=== PATIENT | male | born 1970 | race Caucasian/White ===

== ENCOUNTER 2018-12-06 14:53 | Emergency (ER) | payer BC ==
[2018-12-06 15:08] VITALS: BP 132/75
[2018-12-06] MEDS ORDERED: HYDROmorphone 1 MG/ML Syringe IM ONE (15:27)
--- NOTE | 2018-12-06 15:39 | EDM.PDOC ---
<Tahir Sofia - Last Filed: 12/06/18 15:48> ED HPI GENERAL MEDICAL PROBLEM - General Chief Complaint: Upper Extremity Injury/Pain Stated Complaint: FELL ON ARM/ IN SEVERE PAIN Time Seen by Provider: 12/06/18 15:08 Source of Information: Reports: Patient History Limitations: Reports: No Limitations - History of Present Illness INITIAL COMMENTS - FREE TEXT/NARRATIVE: Angel Luis Denise is a 48 year old male who presents to the ED for a possible fracture to his right arm. He states when he was at work this morning, he walking backwards when and tripped over a [employer] frame and when he fell he turned to his side and landed directly on his left elbow. This was at 7 a.m. this morning. He also states that right after the injury happened he did feel immediate pain but was able to move his arm freely. As the day progressed his pain started to increase and he started to lose ROM due to the increased swelling and pain. He states that the pain is a sharp pain with any movement that radiated down to his fingers. He has increased pain with flexion, extension , supination, and pronation. He hasn't taken anything for pain but he did come in with ice applied to the area. He is on Coumadin for an artificial Aortic valve replacement. He does state that the swelling hasn't progressed within the last 3 hours. He does not have any history of fractures or injuries to his arm or shoulder. Left Elbow Pain Score (Numeric/FACES): 2 - Related Data Allergies Allergy/AdvReac Type Severity Reaction Status Date / Time No Known Allergies Allergy Verified 12/06/18 15:01 Home Meds: Home Meds Aspirin 81 mg PO DAILY 08/22/15 [History] DULoxetine [Cymbalta] 20 mg PO DAILY 08/22/15 [History] Lisinopril 20 mg PO DAILY 08/22/15 [History] Metoprolol Tartrate 50 mg PO DAILY 08/22/15 [History] Warfarin Sodium [Coumadin] 10 mg PO DAILY 08/22/15 [History] amLODIPine [Norvasc] 10 mg PO BID 08/22/15 [History] Past Medical History Cardiovascular History: Reports: CAD, High Cholesterol, Hypertension - Past Surgical History Cardiovascular Surgical History: Reports: Valve Replacement Musculoskeletal Surgical History: Reports: Arthroscopic Knee Social & Family History - Tobacco Use Smoking Status *Q: Current Every Day Smoker Years of Tobacco use: 30 Packs/Tins Daily: 1 - Caffeine Use Caffeine Use: Reports: Coffee - Recreational Drug Use Recreational Drug Use: No Review of Systems - Review of Systems Review Of Systems: See Below Constitutional: Reports: No Symptoms Respiratory: Reports: No Symptoms Cardiovascular: Reports: No Symptoms GI/Abdominal: Reports: No Symptoms Musculoskeletal: Reports: Arm Pain, Joint Swelling Skin: Reports: No Symptoms Neurological: Reports: No Symptoms ED EXAM, GENERAL - Physical Exam Exam Limited By: No Limitations General Appearance: Alert, WD/WN, No Apparent Distress Eye Exam: Bilateral Eye: Normal Inspection Respiratory/Chest: No Respiratory Distress, Lungs Clear, Normal Breath Sounds, No Accessory Muscle Use, Chest Non-Tender Cardiovascular: Normal Peripheral Pulses, Regular Rate, Rhythm, No Edema, No Gallop, No JVD, No Murmur, No Rub Peripheral Pulses: 2+: Brachial (L), Brachial (R), Radial (L), Radial (R) Extremities: Normal Capillary Refill, Joint Swelling (Left elbow), Arm Pain, Limited Range of Motion (Due to pain) Neurological: Alert, Oriented, Normal Gait, No Motor/Sensory Deficits Skin Exam: Warm, Dry, Intact, Normal Color, No Rash Course - Vital Signs Last Recorded V/S: Last Vital Signs Temp 98.1 F 12/06/18 15:03 Pulse 61 12/06/18 15:03 Resp 12 12/06/18 15:03 BP 132/75 12/06/18 15:03 Pulse Ox 98 12/06/18 15:03 - Orders/Labs/Meds Orders: Active Orders 24 hr Category Date Time Status Forearm 2V Lt [CR] Stat Exams 12/06/18 15:24 Ordered DME for Discharge [COMM] Routine Oth 12/06/18 16:00 Ordered Meds: Medications Discontinued Medications Generic Name Dose Route Start Last Admin Trade Name Freq PRN Reason Stop Dose Admin Hydromorphone HCl 1 mg 12/06/18 15:27 12/06/18 15:50 Dilaudid IM 12/06/18 15:28 1 mg ONETIME ONE Administration Departure - Departure Disposition: Home, Self-Care 01 Clinical Impression: Left elbow pain - Discharge Information Instructions: How to Use a Sling, [id number], Joint Pain, [id number] Referrals: Lety Hooker PA-C [Primary Care Provider] - Forms: ED Department Discharge, ED Return to Work/School Form Additional Instructions: You have been evaluated in the ED for your left elbow pain. Your x-ray demonstrated no acute fracture of your left elbow/forearm. Please use ice/heat as tolerated to the affected area. You may take tylenol 500 mg q6 hrs for pain relief. Please do so until you have a tolerable level of pain with activity. Do not exceed 4000mg tylenol in a 24 hour time period. Recommend follow-up with your primary care physician or another clinic provider if your pain/swelling is not much better in and roughly 1 1/2 - 2 weeks time. Please wear the sling as tolerated for further pain relief. Please return to ED if your symptoms should change or worsen. - My Orders Last 24 Hours: My Active Orders 12/06/18 15:24 Forearm 2V Lt [CR] Stat 12/06/18 16:00 DME for Discharge [COMM] Routine - Assessment/Plan Last 24 Hours: My Active Orders 12/06/18 15:24 Forearm 2V Lt [CR] Stat 12/06/18 16:00 DME for Discharge [COMM] Routine <Luciana Schwarz - Last Filed: 12/06/18 16:02> ED HPI GENERAL MEDICAL PROBLEM - History of Present Illness INITIAL COMMENTS - FREE TEXT/NARRATIVE: I have read and reviewed the student's HPI and examined the patient and agree with MACARIO Anne-student. ED EXAM, GENERAL - Physical Exam Exam: See Below Course - Re-Assessments/Exams Free Text/Narrative Re-Assessment/Exam: 12/06/18 15:50 Patient presents to the ED for the evaluation of left elbow pain after an injury. I did obtain a left forearm x-ray for further evaluation. The x-ray was added by Dr. Allen and myself and does not appear to show any acute bony fracture of his left forearm. It is likely that his pain is from a traumatic effusion of the elbow joint at this time. Will give general recommendations and discharge him home he will be put on light duty at work for the next week and a half and a sling. Departure - Departure Time of Disposition: 15:57 Condition: Fair - Discharge Information *PRESCRIPTION DRUG MONITORING PROGRAM REVIEWED*: No *COPY OF PRESCRIPTION DRUG MONITORING REPORT IN PATIENT SANJAY: No
--- NOTE | 2018-12-06 16:42 | CR ---
Left forearm: Two views of the left forearm were obtained. Comparison: No previous forearm study. No fracture or other bony abnormality is seen. Impression: 1. No abnormality is appreciated on two-view left forearm study. Diagnostic code #1
== END 2018-12-06 16:22 | disposition home or self-care (01) ==
LOC: JD.ED 14:53
DX: M25.522 Pain in left elbow (principal); I25.10 Atherosclerotic heart disease of native coronary artery without angina pectoris; E78.00 Pure hypercholesterolemia, unspecified; I10 Essential (primary) hypertension; F17.210 Nicotine dependence, cigarettes, uncomplicated; Z95.4 Presence of other heart-valve replacement; W18.09XA Striking against other object with subsequent fall, initial encounter; Y99.0 Civilian activity done for income or pay; Z79.82 Long term (current) use of aspirin; Z79.899 Other long term (current) drug therapy
CPT/HCPCS: 73090; 96372; 99283; J1170

== ENCOUNTER 2019-12-26 12:47 | Emergency (ER) | payer BC ==
[2019-12-26 12:58] VITALS: BP 156/95
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
[2019-12-26 13:51] LABS: ACETAMINOPHEN 0 ug/mL (10-30)
--- NOTE | 2019-12-26 15:18 | CT ---
Head CT Technique: Multiple axial sections through the brain were obtained. Intravenous contrast was not utilized. Comparison: No prior intracranial imaging is available. 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 No other abnormal parenchymal densities are seen. No evidence of intracranial hemorrhage. No midline shift or mass-effect is seen. Bone window settings were reviewed which shows no acute calvarial abnormality. Visualized mastoid sinus is showing nothing acute. Mild mucosal thickening is seen within the right maxillary and ethmoid sinuses as well as frontal sinuses which is felt compatible with mild chronic sinusitis. Mild atherosclerotic calcification is seen within the carotid siphon. Impression: 1. Old appearing low density area within the left periventricular white matter as described above. 2. Sinus findings believed to represent mild chronic sinusitis. 3. Nothing acute is identified on noncontrast head CT study. Diagnostic code #3 This report was dictated in MDT
--- NOTE | 2019-12-26 15:27 | CR ---
Chest: Portable view of the chest was obtained. Comparison: Prior chest x-ray of 06/09/13. Heart size is slightly enlarged. Sternotomy noted for prosthetic heart valve. Lungs are clear with no acute parenchymal change. Bony structures are grossly intact. Impression: 1. Heart size is slightly enlarged. 2. Prosthetic heart valve. 3. Nothing acute is seen. Diagnostic code #2 This report was dictated in MDT
[2019-12-26] MEDS ORDERED: diphenhydrAMINE 50 MG/ML SDV IM ONE (16:40)
[2019-12-26] MEDS ORDERED: Haloperidol Lactate 5 MG/ML SDV IM ONE (16:40)
[2019-12-26] MEDS ORDERED: LORazepam 2 MG/ML SDV IM ONE (16:40)
[2019-12-26 18:07] VITALS: PULSE 54
== END 2019-12-26 18:07 ==
LOC: JD.ED 12:47
DX: F22 Delusional disorders (principal); S21.209A Unspecified open wound of unspecified back wall of thorax without penetration into thoracic cavity, initial encounter; S31.000A Unspecified open wound of lower back and pelvis without penetration into retroperitoneum, initial encounter; S21.201A Unspecified open wound of right back wall of thorax without penetration into thoracic cavity, initial encounter; Z91.14 Patient's other noncompliance with medication regimen; I10 Essential (primary) hypertension; F17.200 Nicotine dependence, unspecified, uncomplicated; Z95.4 Presence of other heart-valve replacement; Z79.01 Long term (current) use of anticoagulants; Z79.899 Other long term (current) drug therapy; X58.XXXA Exposure to other specified factors, initial encounter
CPT/HCPCS: 36415; 70450; 71045; 80053; 80306; 80307; 81001; 85007; 85027; 85610; 85730; 96372; 99285; J1200; J1630; J2060

== ENCOUNTER 2021-08-17 12:31 | Emergency (ER) | payer BC ==
[2021-08-17 12:59] VITALS: BP 108/70; PULSE 57
--- NOTE | 2021-08-17 13:29 | EDM.PDOCBH ---
ED HPI GENERAL MEDICAL PROBLEM - General Chief Complaint: Drug or Alcohol Abuse Stated Complaint: ALCOHOL DETOX Time Seen by Provider: 08/17/21 12:58 Source of Information: Reports: Patient History Limitations: Reports: No Limitations - History of Present Illness INITIAL COMMENTS - FREE TEXT/NARRATIVE: 50-year-old male presents the emergency department for medical clearance to go to [facility]. Patient states that he had visited with approximately 8 people at [facility] today that told him he needed to go to the hospital to have medical clearance done and then they would allow him to be admitted into the [facility] program. Patient states he does have a significant alcohol history. States he has been drinking daily since April 2021. He drinks half to a full bottle of 1.75 rum daily. He states that his last drink was around 730 this morning. He also admits to smoking a pack to a pack and half of cigarettes daily for the past 34 years. He denies any recreational drug use. States he has been sober in the past for approximately 3 years straight. He states he has been to treatment in the past as well. Denies any history of seizure from detoxing from alcohol. Does have a significant past medical history for mechanical heart valve placement. His primary care provider is Lety Hooker. - Related Data Allergies Allergy/AdvReac Type Severity Reaction Status Date / Time No Known Allergies Allergy Verified 12/26/19 12:58 Home Meds: Home Meds Metoprolol Tartrate 75 mg PO DAILY 08/22/15 [History] Warfarin Sodium [Coumadin] 10 mg PO SUTUWEFRSA 08/22/15 [History] amLODIPine [Norvasc] 10 mg PO BID 08/22/15 [History] Warfarin [Coumadin] 15 mg PO MOTH 12/26/19 [History] lisinopriL [Lisinopril] 20 mg PO DAILY 12/26/19 [History] Gabapentin [Neurontin] 100 mg PO TID 08/17/21 [History] LORazepam [Ativan] 1 mg PO TID #18 tablet 08/17/21 [Rx] Ondansetron [Zofran ODT] 4 mg PO TID #9 tab.dis 08/17/21 [Rx] Sertraline [Zoloft] 100 mg PO DAILY 08/17/21 [History] atorvaSTATin Calcium [Lipitor] 40 mg PO BEDTIME 08/17/21 [History] hydrOXYzine HCL [Hydroxyzine HCl] 25 mg PO BID PRN 08/17/21 [History] Past Medical History Cardiovascular History: Reports: CAD, Heart Valve Replacement, High Cholesterol, Hypertension Psychiatric History: Reports: Addiction, Anxiety, Depression - Past Surgical History Cardiovascular Surgical History: Reports: Valve Replacement Other Cardiovascular Surgeries/Procedures: aortic-on coumadin Musculoskeletal Surgical History: Reports: Arthroscopic Knee Social & Family History - Tobacco Use Tobacco Use Status *Q: Current Every Day Tobacco User Years of Tobacco use: 16 Packs/Tins Daily: 2 - Caffeine Use Caffeine Use: Reports: Coffee, Energy Drinks, Soda - Recreational Drug Use Recreational Drug Type: Reports: Marijuana/Hashish Recreational Drug Use Frequency: Monthly ED ROS GENERAL - Review of Systems Review Of Systems: Comprehensive ROS is negative, except as noted in HPI. ED EXAM, BEHAVIORAL HEALTH - Physical Exam Exam: See Below Exam Limited By: No Limitations General Appearance: Alert, WD/WN, No Apparent Distress Ears: Normal External Exam, Hearing Grossly Normal Nose: Normal Inspection Throat/Mouth: Normal Inspection, Normal Lips, Normal Voice, No Airway Compromise Head: Atraumatic Neck: Normal Inspection, Supple Respiratory/Chest: No Respiratory Distress, No Accessory Muscle Use, Chest Non- Tender, Rhonchi (Scattered bilaterally), Wheezing (Fine expiratory wheeze noted bilaterally) Cardiovascular: Normal Peripheral Pulses, Regular Rate, Rhythm, No Edema, Other (Patient does have mechanical click due to mechanical heart valve) GI/Abdominal: Normal Bowel Sounds, Soft, Non-Tender, No Distention (Male) Exam: Deferred Rectal (Males) Exam: Deferred Back Exam: Normal Inspection Extremities: Normal Inspection Neurological: Alert, Normal Mood/Affect, Oriented x 3 Psychiatric: Alert, Normal Affect, Normal Cognition, Oriented Skin Exam: Warm, Dry, Intact, Normal color, No rash #1 Interpretation EKG Date: 08/17/21 Time: 14:22 Rhythm: NSR Rate (Beats/Min): 56 [place]: Normal P-Wave: Present QRS: Normal ST-T: Normal QT: Prolonged Comparison: NA - No Prior EKG EKG Interpretation Comments: Per Dr. Lopez interpretation: Sinus rhythm at 56 bpm; probable anteroseptal infarct, old; abnormal T, consider ischemia, lateral leads; prolonged QT interval COURSE, BEHAVIORAL HEALTH COMP - Course Vital Signs: Last Vital Signs Temp 97.9 F 08/17/21 12:58 Pulse 57 L 08/17/21 12:58 Resp 20 08/17/21 12:58 BP 108/70 08/17/21 12:58 Pulse Ox 90 L 08/17/21 12:58 Orders, Labs, Meds: Laboratory Tests 08/17/21 08/17/21 08/17/21 Range/Units 13:19 13:19 13:19 WBC 7.98 (4.23-9.07) K/mm3 RBC 4.53 L (4.63-6.08) M/mm3 Hgb 14.1 D (13.7-17.5) gm/dl Hct 41.9 (40.1-51.0) % MCV 92.5 H D (79.0-92.2) fl MCH 31.1 (25.7-32.2) pg MCHC 33.7 (32.2-35.5) g/dl RDW Std Deviation 56.0 H (35.1-43.9) fL Plt Count 112 L D (163-337) K/mm3 MPV 9.9 (9.4-12.3) fl Neut % (Auto) 71.4 H (34.0-67.9) % Lymph % (Auto) 13.9 L (21.8-53.1) % [place] % (Auto) 13.2 H (5.3-12.2) % Eos % (Auto) 1.0 (0.8-7.0) Baso % (Auto) 0.4 (0.1-1.2) % Neut # (Auto) 5.70 H (1.78-5.38) K/mm3 Lymph # (Auto) 1.11 L (1.32-3.57) K/mm3 [place] # (Auto) 1.05 H (0.30-0.82) K/mm3 Eos # (Auto) 0.08 (0.04-0.54) K/mm3 Baso # (Auto) 0.03 (0.01-0.08) K/mm3 Sodium 136 (136-145) mEq/L Potassium 3.4 L (3.5-5.1) mEq/L Chloride 101 (98-107) mEq/L Carbon Dioxide 23 (21-32) mEq/L Anion Gap 15.4 H (5-15) BUN 13 (7-18) mg/dL Creatinine 1.0 (0.7-1.3) mg/dL Est Cr Clr Drug Dosing 98.08 mL/min Estimated GFR (MDRD) > 60 (>60) mL/min BUN/Creatinine Ratio 13.0 L (14-18) Glucose 106 H (70-99) mg/dL Calcium 8.2 L (8.5-10.1) mg/dL Magnesium 1.7 L (1.8-2.4) mg/dL Total Bilirubin 0.7 (0.2-1.0) mg/dL AST 49 H (15-37) U/L ALT 51 (16-63) U/L Alkaline Phosphatase 77 (46-116) U/L Troponin I (0.00-0.056) ng/mL Total Protein 7.1 (6.4-8.2) g/dl Albumin 3.3 L (3.4-5.0) g/dl Globulin 3.8 gm/dL Albumin/Globulin Ratio 0.9 L (1-2) TSH 3rd Generation 2.026 (0.358-3.74) uIU/mL Salicylates 3.7 (2.8-20) mg/dL Urine Opiates Screen (EEBAWG=598) Ur Buprenorphine Scrn (CUTOFF=10) Ur Oxycodone Screen (XUN6BN=688) Urine Methadone Screen (VAM4CX=387) Ur Propoxyphene Screen (OKJAUF=836) Acetaminophen 0 L (10-30) ug/mL Ur Barbiturates Screen (VJOJTK=897) Ur Tricyclics Screen (PQJVMX=768) Ur Phencyclidine Scrn (CUTOFF=25) Ur Amphetamine Screen (WEKSNV=692) U Methamphetamines Scrn (BEZUWX=943) U Benzodiazepines Scrn (MMNZLX=885) U Cocaine Metab Screen (XNXEGZ=813) U Marijuana (THC) Screen (CUTOFF=50) Ethyl Alcohol 0.27 (0.00) gm% SARS-CoV-2 RNA (TANISHA) (NEGATIVE) 08/17/21 08/17/21 08/17/21 Range/Units 13:19 14:55 16:20 WBC (4.23-9.07) K/mm3 RBC (4.63-6.08) M/mm3 Hgb (13.7-17.5) gm/dl Hct (40.1-51.0) % MCV (79.0-92.2) fl MCH (25.7-32.2) pg MCHC (32.2-35.5) g/dl RDW Std Deviation (35.1-43.9) fL Plt Count (163-337) K/mm3 MPV (9.4-12.3) fl Neut % (Auto) (34.0-67.9) % Lymph % (Auto) (21.8-53.1) % [place] % (Auto) (5.3-12.2) % Eos % (Auto) (0.8-7.0) Baso % (Auto) (0.1-1.2) % Neut # (Auto) (1.78-5.38) K/mm3 Lymph # (Auto) (1.32-3.57) K/mm3 [place] # (Auto) (0.30-0.82) K/mm3 Eos # (Auto) (0.04-0.54) K/mm3 Baso # (Auto) (0.01-0.08) K/mm3 Sodium (136-145) mEq/L Potassium (3.5-5.1) mEq/L Chloride (98-107) mEq/L Carbon Dioxide (21-32) mEq/L Anion Gap (5-15) BUN (7-18) mg/dL Creatinine (0.7-1.3) mg/dL Est Cr Clr Drug Dosing mL/min Estimated GFR (MDRD) (>60) mL/min BUN/Creatinine Ratio (14-18) Glucose (70-99) mg/dL Calcium (8.5-10.1) mg/dL Magnesium (1.8-2.4) mg/dL Total Bilirubin (0.2-1.0) mg/dL AST (15-37) U/L ALT (16-63) U/L Alkaline Phosphatase (46-116) U/L Troponin I 0.178 H* (0.00-0.056) ng/mL Total Protein (6.4-8.2) g/dl Albumin (3.4-5.0) g/dl Globulin gm/dL Albumin/Globulin Ratio (1-2) TSH 3rd Generation (0.358-3.74) uIU/mL Salicylates (2.8-20) mg/dL Urine Opiates Screen Negative (LBOAVW=623) Ur Buprenorphine Scrn Negative (CUTOFF=10) Ur Oxycodone Screen Negative (EBI8ZD=599) Urine Methadone Screen Negative (GUC7WK=084) Ur Propoxyphene Screen Negative (UIHYGM=533) Acetaminophen (10-30) ug/mL Ur Barbiturates Screen Negative (EWYURL=534) Ur Tricyclics Screen Negative (YGNEXA=804) Ur Phencyclidine Scrn Negative (CUTOFF=25) Ur Amphetamine Screen Negative (XPGXMM=614) U Methamphetamines Scrn Negative (AWTYOW=987) U Benzodiazepines Scrn Negative (IMTMXW=616) U Cocaine Metab Screen Negative (SKOZEM=952) U Marijuana (THC) Screen Negative (CUTOFF=50) Ethyl Alcohol (0.00) gm% SARS-CoV-2 RNA (TANISHA) Negative (NEGATIVE) Re-Assessment/Re-Exam: Patient's troponin level is elevated at 0.178. Did discuss the case with [facility] news assignment editor on-call, . Copy of the patient's EKG was also sent to him to view. He suspects that elevated troponin levels likely due to left ventricular hypertrophy. Does not feel that I need to do any further work-up regarding this. Departure - Departure Time of Disposition: 17:18 Disposition: Home, Self-Care 01 Condition: Good Clinical Impression: Alcohol abuse - Discharge Information Prescriptions: LORazepam [Ativan] 1 mg PO TID #18 tablet Ondansetron [Zofran ODT] 4 mg PO TID #9 tab.dis Instructions: Alcohol Use Disorder Referrals: Lety Hooker PA-C [Primary Care Provider] - Forms: ED Department Discharge Additional Instructions: You were seen in the emergency department today for medical clearance to go to the [facility]. You have been medically cleared. I have sent prescription to [place] pharmacy for Ativan 1 mg tab to be given 3 times daily x3 days then twice daily x3 days then once at bedtime x3 days. I have also sent a prescription for nausea medication called Zofran ODT. 1 tab to be taken 3 times daily x3 days. Sepsis Event Note (ED) - Focused Exam Vital Signs: Vital Signs Temp Pulse Resp BP Pulse Ox 08/17/21 12:58 97.9 F 57 L 20 108/70 90 L
[2021-08-17 14:02] LABS: ACETAMINOPHEN 0 ug/mL (10-30)
[2021-08-17] MEDS ORDERED: Phytonadione ORAL 2.5mg/2.5ml Soln Simple Syrup U/D PO ONE (19:38)
== END 2021-08-17 20:53 | disposition home or self-care (01) ==
LOC: JD.ED 12:31
DX: F10.10 Alcohol abuse, uncomplicated (principal); I25.10 Atherosclerotic heart disease of native coronary artery without angina pectoris; E78.00 Pure hypercholesterolemia, unspecified; I10 Essential (primary) hypertension; Z79.01 Long term (current) use of anticoagulants; Z79.899 Other long term (current) drug therapy; Z72.0 Tobacco use; Z20.822 Contact with and (suspected) exposure to COVID-19; Y90.5 Blood alcohol level of 100-119 mg/100 ml
CPT/HCPCS: 36415; 80053; 80143; 80179; 80306; 80307; 83735; 84443; 84484; 85025; 85610; 85730; 87635; 93005; 99284; A9270; 93010; U0002

== ENCOUNTER 2023-07-31 01:43 | Emergency (ER) | payer BC ==
[2023-07-31] MEDS ORDERED: Tranexamic Acid 1,000 MG/10 ML Vial IV ONE (02:00)
[2023-07-31] MEDS ORDERED: Lidocaine 2% with EPINEPHrine 1:100,000 20 ML MDV ONE (03:00)
[2023-07-31] MEDS ORDERED: Lidocaine 2% with EPINEPHrine 1:100,000 20 ML MDV INJECT ONE (03:10)
[2023-07-31 03:24] VITALS: BP 150/90; PULSE 70
[2023-07-31 03:26] LABS: PROTHROMBIN TIME 72.3 SECONDS (9.7-12.0)
[2023-07-31 03:27] LABS: INR 7.87
== END 2023-07-31 03:20 | disposition home or self-care (01) ==
LOC: JD.ED 01:43
DX: S01.512A Laceration without foreign body of oral cavity, initial encounter (principal); I10 Essential (primary) hypertension; I25.10 Atherosclerotic heart disease of native coronary artery without angina pectoris; E78.00 Pure hypercholesterolemia, unspecified; F17.210 Nicotine dependence, cigarettes, uncomplicated; Z79.899 Other long term (current) drug therapy; Z79.01 Long term (current) use of anticoagulants; X58.XXXA Exposure to other specified factors, initial encounter
CPT/HCPCS: 12011; 36415; 85610; 96374; 99283; 99283-25; J3490

== ENCOUNTER 2024-07-07 07:55 | Emergency (ER) | payer SELFPAY ==
[2024-07-07 08:07] VITALS: BP 125/94; PULSE 160
[2024-07-07] MEDS: LORazepam 2 MG/ML SDV IVPUSH ONE ×5 (08:34→14:40)
[2024-07-07] MEDS: Diltiazem 25 MG/5 ML SDV IVPUSH ONE ×2 (08:34→09:18)
[2024-07-07 09:17] LABS: BASOPHILS PERCENT AUTO 0.1 % (0.0-1.0); EOSINOPHILS PERCENT AUTO 0.4 % (0.0-6.0); HEMATOCRIT 44.5 % (42.0-52.0); HEMOGLOBIN 15.2 gm/dl (14.0-18.0); IMMATURE GRAN ABSOLUTE AUTO 0.04 K/mm3 (0.00-0.05); IMMATURE GRAN PERCENT AUTO 0.4 % (0.0-0.4); LYMPHOCYTES ABSOLUTE AUTO 0.9 K/mm3 (1.0-4.8); LYMPHOCYTES PERCENT AUTO 9.5 % (24.0-44.0); MEAN CORPUSCULAR HEMOGLOBIN 29.7 pg (28.0-32.0); MEAN CORPUSCULAR HGB CONC 34.2 g/dl (32.0-36.0); MEAN PLATELET VOLUME 13.1 fl (9.4-12.4); MONOCYTES ABSOLUTE AUTO 0.8 K/mm3 (0.0-0.8); MONOCYTES PERCENT AUTO 8.7 % (0.0-8.0); NEUTROPHILS ABSOLUTE AUTO 7.3 K/mm3 (1.8-7.7); NEUTROPHILS PERCENT AUTO 80.9 % (41.0-71.0); NRBC ABSOLUTE 0.03 (0.00-0.02); NRBC PERCENT 0.3 % (0.0-0.2); PLATELET COUNT,PLT 59 K/mm3 (150-400); RED BLOOD CELL COUNT 5.11 M/mm3 (4.52-5.90); WHITE BLOOD CELL COUNT,WBC 9.01 K/mm3 (3.9-11.3)
[2024-07-07 09:21] LABS: MEAN CORPUSCULAR VOLUME 87.1 fl (83.0-99.0)
[2024-07-07] MEDS: Albuterol/Ipratropium 3.0-0.5 MG/3 ML Neb Soln NEB ONE (09:32)
[2024-07-07 09:41] LABS: SLIDE REVIEW ABNORMAL SMEAR
[2024-07-07 09:49] LABS: ALBUMIN 3.8 g/dl (3.4-5.0); ANION GAP 18.8 (5-15); BILIRUBIN TOTAL 4.7 mg/dL (0.2-1.0); BUN/CREATININE RATIO 17.5 (14-18); CALCIUM 9.7 mg/dL (8.5-10.1); EST CRCL DRUG DOSING (CG) 76.69 mL/min; POTASSIUM,K 4.8 mEq/L (3.5-5.1)
[2024-07-07 09:52] LABS: CREATININE 1.2 mg/dL (0.7-1.3); PROTEIN TOTAL,TP 7.5 g/dl (6.4-8.2)
[2024-07-07] MEDS: Haloperidol Lactate 5 MG/ML SDV IVPUSH ONE (10:57)
[2024-07-07] MEDS: Furosemide 40 MG/4 ML VIAL IVPUSH ONE (11:25)
[2024-07-07] MEDS: Aspirin 81 MG Tab.Chew PO ONE (11:25)
[2024-07-07] MEDS: Etomidate 2 MG/ML 20 ML SDV IVPUSH ONE (13:09)
[2024-07-07] MEDS: Lactated Ringers 500 ML IV ONE (13:09)
[2024-07-07] MEDS: Rocuronium 50 MG/5 ML Vial IVPUSH ONE (13:09)
[2024-07-07] MEDS: propofoL 1,000 MG/100 ML 100 ML IV SCH (13:40)
[2024-07-07 13:57] LABS: O2 SATURATION ARTERIAL 83.3 % (96.0-97.0); PCO2 ARTERIAL 33.4 mmHg (35.0-45.0)
[2024-07-07 13:58] LABS: BICARBONATE,ARTERIAL 13.5 meq/L (22.0-26.0)
[2024-07-07] MEDS: Pantoprazole 40 MG Vial IVPUSH ONE (14:00)
[2024-07-07 14:38] LABS: BARBITURATE SCREEN,URINE NEGATIVE (CUTOFF=200); BENZODIAZEPINES SCREEN,URINE NEGATIVE (CUTOFF=150); BUPRENORPHINE SCREEN,URINE NEGATIVE (CUTOFF=10); METHADONE SCREEN, URINE NEGATIVE (CUT0FF=200); METHAMPHETAMINES SCREEN, URINE NEGATIVE (CUTOFF=500); OXYCODONE SCREEN,URINE NEGATIVE (CUT0FF=100); THC SCREEN,URINE 20 NG/ML PRESUMPTIVE POSITIVE (CUTOFF=50)
[2024-07-07 14:40] LABS: AMPHETAMINES SCREEN, URINE NEGATIVE (CUTOFF=500)
[2024-07-07 14:44] LABS: O2 SATURATION ARTERIAL 94.6 % (96.0-97.0); PCO2 ARTERIAL 43.3 mmHg (35.0-45.0)
[2024-07-07 14:45] LABS: BASE EXCESS ARTERIAL -14.4 (-2-2.0); BICARBONATE,ARTERIAL 14.4 meq/L (22.0-26.0)
[2024-07-07] MEDS: Octreotide 500 MCG in Sodium Chloride 0.9% 499 ML IV SCH (14:59)
[2024-07-07] MEDS: Rocuronium 50 MG/5 ML Vial ONE (16:28)
== END 2024-07-07 15:00 ==
LOC: JD.ED 07:55
DX: J96.01 Acute respiratory failure with hypoxia (principal); F10.231 Alcohol dependence with withdrawal delirium; R57.1 Hypovolemic shock; I48.91 Unspecified atrial fibrillation; K92.2 Gastrointestinal hemorrhage, unspecified; I11.0 Hypertensive heart disease with heart failure; I50.9 Heart failure, unspecified; F17.200 Nicotine dependence, unspecified, uncomplicated; I25.10 Atherosclerotic heart disease of native coronary artery without angina pectoris; E78.00 Pure hypercholesterolemia, unspecified; Z79.01 Long term (current) use of anticoagulants; Z79.899 Other long term (current) drug therapy
CPT/HCPCS: 31500; 36415; 36430; 36600; 51702; 71045; 80053; 80306; 80307; 82803; 83880; 84484; 85025; 86850; 86900; 86901; 86922; 93005; 94640; 96365; 96366; 96367; 96368; 96375; 96376; 99285; A9270; J1630; J1940; J2060; J2250; J2354; J2470; J2704; J3490; J7040; J7120; P9016; 93010; 99291; 99292; J7620-GY